=== PATIENT | male | born 1965 | race Caucasian/White ===

== ENCOUNTER 2017-01-03 14:06 | Emergency (ER) | payer OTHER ==
[~2017-01-03] VITALS: Ht 175.3 cm; Wt 83.9 kg
[2017-01-03] MEDS ORDERED: VENLAFAXINE HC150 MG PO (15:13)
[2017-01-03] MEDS ORDERED: CLONAZEPAM0.5 M2 PO (15:13)
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
[2017-01-03 16:15] LABS: ABSOLUTE BASOPHIL COUNT 0 /CUMM (0.0-0.2); ABSOLUTE EOSINOPHIL COUNT 0 /CUMM (0.0-0.7); ABSOLUTE GRANULOCYTE CT 4.7 /CUMM (1.4-6.5); ABSOLUTE LYMPH COUNT 1.4 /CUMM (1.2-3.4); ABSOLUTE MONOCYTE COUNT 0.5 /CUMM (0.10-0.60); BASOPHIL % 0.7 % (0.0-2.0); EOSINOPHIL % 0.3 % (0-5); GRANULOCYTE % 70.5 % (42.2-75.2); HEMATOCRIT 41.7 % (42-52); MEAN CORPUSCULAR HGB 30.3 PG (27.0-31.0); MEAN CORPUSCULAR HGB CONC 34.1 G/DL (33.0-37.0); MEAN CORPUSCULAR VOLUME 88.8 FL (80.0-94.0); MEAN PLATELET VOLUME 8.1 FL (7.4-10.4); PLATELET COUNT 179 /CUMM (130-400); RBC DISTRIBUTION WIDTH 13.8 % (11.5-14.5); WHITE BLOOD CELL COUNT 6.7 /CUMM (4.8-10.8)
--- NOTE | 2017-01-03 17:37 | RADIOLOGY REPORT ---
EXAMINATION: XR ORBITS CLINICAL INFORMATION: Left orbital trauma. COMPARISON: None TECHNIQUE: 4 views of the orbits were obtained. FINDINGS: Bone mineral density is maintained without evidence of fracture or dislocation. No focal osseous lesions are seen. Paranasal sinuses appear well-developed and patent, no air-fluid levels are identified in the maxillary sinuses to suggest an occult orbital floor fracture. IMPRESSION: No evidence of fracture.
== END 2017-01-03 18:45 ==
LOC: ERH 14:06
PROVIDERS: Physician Assistant
DX: S05.12XA Contusion of eyeball and orbital tissues, left eye, initial encounter (principal); F10.20 Alcohol dependence, uncomplicated; H11.32 Conjunctival hemorrhage, left eye; Y04.8XXA Assault by other bodily force, initial encounter; Y92.9 Unspecified place or not applicable; Y93.9 Activity, unspecified
CPT/HCPCS: 70200; 80307; 81001; G0480